=== PATIENT | male | born 1950 | race Caucasian/White ===

== ENCOUNTER 2025-07-07 11:25 | Emergency (ER) | payer MEDICARE ==
[2025-07-07] MEDS ORDERED: Bacitracin 1 PK ONE (12:05)
== END 2025-07-07 12:20 | disposition home or self-care (01) ==
LOC: NAV ERS 11:25
DX: S00.81XA Abrasion of other part of head, initial encounter (principal); E11.9 Type 2 diabetes mellitus without complications; Z79.899 Other long term (current) drug therapy; Z79.84 Long term (current) use of oral hypoglycemic drugs; Z79.890 Hormone replacement therapy; W22.8XXA Striking against or struck by other objects, initial encounter
CPT/HCPCS: 99282